=== PATIENT | male | born 1945 | race Caucasian/White ===

== ENCOUNTER → 2016-07-12 | Outpatient (CLI) | payer OTHER, MEDICARE | LOC: FIMAGING 13:36 | PROVIDERS: ATTEND Orthopaedic Surgery Orthopaedic Surgery of the Spine | DX: Z98.1 Arthrodesis status (principal); M51.37 Other intervertebral disc degeneration, lumbosacral region; M43.16 Spondylolisthesis, lumbar region ==

== ENCOUNTER → 2016-10-09 | Outpatient (CLI) | payer OTHER, MEDICARE | LOC: FIMAGING 13:22 | PROVIDERS: ATTEND Orthopaedic Surgery Orthopaedic Surgery of the Spine | DX: Z47.89 Encounter for other orthopedic aftercare (principal); Z98.1 Arthrodesis status; M53.3 Sacrococcygeal disorders, not elsewhere classified ==

== ENCOUNTER → 2017-09-19 | Outpatient (CLI) | payer OTHER, MEDICARE | LOC: FIMAGING 12:44 | PROVIDERS: ATTEND Family Medicine | DX: N13.30 Unspecified hydronephrosis (principal); G20 Parkinson's disease ==